=== PATIENT | male | born 1990 | race African-American/Black ===

== ENCOUNTER 2020-10-08 16:15 | Emergency (ER) | payer OTHER, SELFPAY ==
--- NOTE | 2020-10-08 | ECG_ITS ---
Test Reason : CHEST PAIN Blood Pressure : / mmHG Vent. Rate : 078 BPM Atrial Rate : 078 BPM P-R Int : 174 ms QRS Dur : 104 ms QT Int : 336 ms P-R-T Axes : 056 066 027 degrees QTc Int : 383 ms Normal sinus rhythm with sinus arrhythmia Normal ECG No previous ECGs available Referred By: Generic ED Physician Electronically Signed By:NICOLASA VASQUEZ
--- NOTE | ~2020-10-08 | XR_ITS ---
EXAMINATION: XR CHEST CLINICAL INFORMATION: Chest pain COMPARISON: None TECHNIQUE: Frontal view of the chest was obtained. FINDINGS: No significant abnormality is noted involving the heart, lungs, mediastinum, bony thorax or soft tissues. Some minimal bibasilar atelectasis is present. XR/XR chest 1V IMPRESSION: No acute intrathoracic disease.
[2020-10-08 17:06] VITALS: BP 141/79; PULSE 82; RESP 18; TEMP 36.9; O2SAT 97; BMI 32.1
[2020-10-08 19:36] VITALS: BP 139/91; PULSE 69; RESP 16; O2SAT 99
--- NOTE | 2020-10-08 19:59 | PC.NURSE ---
Pt found sitting upright in bed, CAOx4. Pt reporting multiple complaints, states he requires a RX for ABX due to an ongoing infection to a tooth on his upper right side, states the tooth fell out but per his MD, to come to the ED for ABX. Pt also reporting chronic bleed in his stools x 1 year with associated upper abdominal pain. Pt showing this RN pictures of his BM today. Loose BM noted with bright red blood and clots. Pt denies constipation/hemorrhoids. Pt states he has mentioned it to his doctor but no further treatment was ordered. Pt also reporting a history of HTN, states recent med changes. Pt c/o intermittent CP x 6 months. EKG completed in Triage. IV established, labs obtained. CXR at bedside. Pt awaiting primary MD edwardo. [place]. Continue to monitor.
[2020-10-08 20:14] LABS: MANUAL DIFF FLAG NO
[2020-10-08 20:16] LABS: Basophils Absolute Auto 0.1 X10*3/uL (0.0-0.2); Basophils Percent Auto 0.7 % (0-2); Eosinophils Absolute Auto 0.4 X10*3/uL (0.0-0.4); Eosinophils Percent Auto 4.2 % (0-4); Hematocrit 43.4 % (42-52); Hemoglobin 14.8 g/dl (14.0-18.0); Imm Gran Abs Auto 0.03 X10*3/uL (0.00-0.03); Imm Gran Pct Auto 0.3 % (0.0-0.4); Lymphocytes Absolute Auto 2.9 X10*3/uL (1.2-4.9); Lymphocytes Percent Auto 31.6 % (20-40); Mean Corpuscular HGB Conc 34.1 g/dl (31.0-36.0); Mean Corpuscular Hemoglobin 28.4 pg (27.0-33.0); Mean Corpuscular Volume 83.3 fL (80-98); Mean Platelet Volume 9.9 fL (9.4-12.4); Monocytes Absolute Auto 0.9 X10*3/uL (0.1-1.2); Monocytes Percent Auto 10.2 % (2-11); Neutrophils Absolute Auto 4.8 X10*3/uL (2.0-8.3); Platelet Count 189 X10*3/uL (160-400); Red Blood Count 5.21 X10*6/uL (4.60-5.80); Red Cell Distribution Width 14.3 % (11.0-16.0)
[2020-10-08 20:38] LABS: Anion Gap 11 (12-20); Blood Urea Nitrogen 12 mg/dL (9-16); Calcium 9.8 mg/dL (8.4-10.2); Carbon Dioxide 30 mmol/L (22-29); Chloride 105 mmol/L (96-108); Creatinine Clr Calc Pharmacy 95.9; Estimated Glomerular Filt Rate 55; Glucose Random 75 mg/dL (60-115); Potassium 3.9 mmol/L (3.3-5.1); Sodium 142 mmol/L (135-145)
[2020-10-08 20:46] LABS: Troponin-I High Sensitivity 4.2 ng/L (<3.5-35.0)
[2020-10-08 21:32] VITALS: BP 122/75; PULSE 67; RESP 15; TEMP 36.9; O2SAT 98
--- NOTE | 2020-10-08 22:04 | PC.NURSE ---
Pt had MD Bowden assigned to him accidentally in Triage so he was not showing up on MDs to be seen screen. Pt continues awaiting primary MD brooke due to this confusion. MD Hodges signing up for pt.
--- NOTE | 2020-10-08 22:17 | ED.GENADULT ---
HPI - General Adult General Chief complaint: Abdominal Pain Stated complaint: dental infection Time Seen by Provider: 10/08/20 22:16 Source: patient Mode of arrival: ambulatory History of Present Illness HPI narrative: 30-year-old male who presents with complaints right upper tooth loss with subsequent pain and drainage, and states that his dentist told him to come to the emergency room to get antibiotics and then provided him with a follow-up appointment for definitive treatment. Patient is also concerned about over a year of bleeding that is associated with defecation, not painful, and has not soiled his underwear. He does report that he has constipation and strains frequently with his bowel movements. He otherwise denies any abdominal pain but reports significant anxiety regarding this ongoing issue. He has discussed with his primary care doctor who has attributed to stress. Related Data Previous Rx's Medication Instructions Recorded amoxicillin-pot clavulanate 1 tab PO Q12H 7 Days #14 tab 10/09/20 [Augmentin] Allergies Allergy/AdvReac Type Severity Reaction Status Date / Time No Known Allergies Allergy Unverified 01/08/20 18:04 Review of Systems Review of Systems: Pertinent positives and negatives as stated in HPI 10 point review of systems otherwise negative. [facility] Past Medical History Source: nursing notes reviewed Social History Social History Advance Directives: No Advance Directives Information Provided: No Physical Exam Vital Signs: Vital Signs: Last Vital Signs Temp 98.4 F 10/08/20 21:32 Pulse 78 10/08/20 23:12 Resp 16 10/08/20 23:12 BP 136/87 10/08/20 23:12 Pulse Ox 98 10/08/20 21:32 Body Mass Index 32.1 VITAL SIGNS: Reviewed. GENERAL: Smells like marijuana, Well developed, well nourished, in no acute distress. HEAD: Normocephalic/atraumatic, EYES: PERRLA, EOMI OROPHARYNX: no oral lesions noted, posterior pharynx clear, missing tooth noted at right upper without evidence gingival edema and multiple other dental caries LUNGS: Normal breath sounds. No adventitious sounds or accessory muscle use. SpO2<98> CARDIOVASCULAR: Regular rate and rhythm without noted murmurs ABDOMEN: Obese, Soft, non-tender, non-distended with bowel sounds. MUSCULOSKELETAL: No tenderness, deformities, or effusions noted on gross inspection. EXTREMITIES: No cyanosis, clubbing or edema. SKIN: Inspection of the skin reveals no rashes NEUROLOGIC: Alert and oriented x 4. Strength and sensation to light touch were grossly intact x 4. Course Course Course Narrative: This is a 30-year-old male with history and clinical presentation consistent with likely hemorrhoid related rectal bleeding, and will be provided with initial antibiotics here in the emergency room and then discharged with remaining prescription. On review of Hematology results there is no evidence of acute anemia. Review of all investigations negative for acute findings to suggest anemia or infection and serial troponins noted to be lateral as they are detectable but not elevated without acute changes on EKG. Patient was informed of all results. Medical Decision Making Lab Data Result diagrams: 10/08/20 19:56 10/08/20 19:56 Labs: Lab Results 10/08/20 10/08/20 10/08/20 Range/Units 19:56 19:56 19:56 WBC 9.0 (4.8-10.8) X10*3/uL RBC 5.21 (4.60-5.80) X10*6/uL Hgb 14.8 (14.0-18.0) g/dl Hct 43.4 (42-52) % MCV 83.3 (80-98) fL MCH 28.4 (27.0-33.0) pg MCHC 34.1 (31.0-36.0) g/dl RDW 14.3 (11.0-16.0) % Plt Count 189 (160-400) X10*3/uL MPV 9.9 (9.4-12.4) fL Immature Gran % (Auto) 0.3 (0.0-0.4) % Neut % (Auto) 53.0 (45-73) % Lymph % (Auto) 31.6 (20-40) % [place] % (Auto) 10.2 (2-11) % Eos % (Auto) 4.2 H (0-4) % Baso % (Auto) 0.7 (0-2) % Lymph # (Auto) 2.9 (1.2-4.9) X10*3/uL [place] # (Auto) 0.9 (0.1-1.2) X10*3/uL Eos # (Auto) 0.4 (0.0-0.4) X10*3/uL Baso # (Auto) 0.1 (0.0-0.2) X10*3/uL Abs Immat Gran (auto) 0.03 (0.00-0.03) X10*3/uL Absolute Neuts (auto) 4.8 (2.0-8.3) X10*3/uL Absolute Nucleated RBC 0.000 (0.0-0.012) X10*3/uL Nucleated RBC % (auto) 0.0 (0.0-0.2) /100WBC Sodium 142 (135-145) mmol/L Potassium 3.9 (3.3-5.1) mmol/L Chloride 105 (96-108) mmol/L Carbon Dioxide 30 H (22-29) mmol/L Anion Gap 11 L (12-20) BUN 12 (9-16) mg/dL Creatinine 1.48 H (0.5-1.4) mg/dL Estim Creat Clear Calc 95.9 Estimated GFR 55 Random Glucose 75 (60-115) mg/dL Calcium 9.8 (8.4-10.2) mg/dL Troponin I High Sens 4.2 (<3.5-35.0) ng/L Urine Color Urine Appearance Urine pH (5.0-8.0) Ur Specific [employer] (1.005-1.025) Urine Protein (NEG-TRACE) MG/DL Urine Glucose (UA) (NEG) MG/DL Urine Ketones (NEG) MG/DL Urine Blood (NEG) Urine Nitrite (NEG) Ur Leukocyte Esterase (NEG) 10/08/20 10/08/20 Range/Units 22:19 23:37 WBC (4.8-10.8) X10*3/uL RBC (4.60-5.80) X10*6/uL Hgb (14.0-18.0) g/dl Hct (42-52) % MCV (80-98) fL MCH (27.0-33.0) pg MCHC (31.0-36.0) g/dl RDW (11.0-16.0) % Plt Count (160-400) X10*3/uL MPV (9.4-12.4) fL Immature Gran % (Auto) (0.0-0.4) % Neut % (Auto) (45-73) % Lymph % (Auto) (20-40) % [place] % (Auto) (2-11) % Eos % (Auto) (0-4) % Baso % (Auto) (0-2) % Lymph # (Auto) (1.2-4.9) X10*3/uL [place] # (Auto) (0.1-1.2) X10*3/uL Eos # (Auto) (0.0-0.4) X10*3/uL Baso # (Auto) (0.0-0.2) X10*3/uL Abs Immat Gran (auto) (0.00-0.03) X10*3/uL Absolute Neuts (auto) (2.0-8.3) X10*3/uL Absolute Nucleated RBC (0.0-0.012) X10*3/uL Nucleated RBC % (auto) (0.0-0.2) /100WBC Sodium (135-145) mmol/L Potassium (3.3-5.1) mmol/L Chloride (96-108) mmol/L Carbon Dioxide (22-29) mmol/L Anion Gap (12-20) BUN (9-16) mg/dL Creatinine (0.5-1.4) mg/dL Estim Creat Clear Calc Estimated GFR Random Glucose (60-115) mg/dL Calcium (8.4-10.2) mg/dL Troponin I High Sens 4.1 (<3.5-35.0) ng/L Urine Color YELLOW Urine Appearance CLEAR Urine pH 6.0 (5.0-8.0) Ur Specific [employer] 1.020 (1.005-1.025) Urine Protein NEG (NEG-TRACE) MG/DL Urine Glucose (UA) NEG (NEG) MG/DL Urine Ketones NEG (NEG) MG/DL Urine Blood NEG (NEG) Urine Nitrite NEG (NEG) Ur Leukocyte Esterase NEG (NEG) Discharge Plan Discharge Clinical Impression: Toothache, Constipation, Infected tooth, Hemorrhoid Patient Disposition: Home, Self-Care Instructions: Constipation (ED), Hemorrhoids (ED), High Fiber Diet (ED), Toothache (ED) Additional Instructions: 1. Complete entire course of antibiotics that you have been prescribed for your dental pain. 2. You have been provided with a referral to Gastroenterology for your hemorrhoids, please see the referral listed below. Return to the ER for worsening symptoms. Prescriptions: New amoxicillin-pot clavulanate [Augmentin] 875-125 mg tablet 1 tab PO Q12H 7 Days Qty: 14 RF: 0 Referrals: Leighton Ruiz MD [Primary Care Provider] - 2 days Fernanda Mccoy MD [Physician] - 2 days (Please evaluate and treat as indicated for hemorrhoids.) Interventions: LWBS Worksheet Last Done: 10/08/20 19:11
--- NOTE | 2020-10-08 22:21 | PC.NURSE ---
UO obtained and sent.
[2020-10-08 22:25] LABS: Glucose Urine UA NEG (NEG); Leukocyte Esterase Urine NEG (NEG); Nitrite Urine NEG (NEG); Urine Blood NEG (NEG); Urine Ketones NEG (NEG); Urine Protein NEG (NEG-TRACE)
[2020-10-08 22:27] LABS: Appearance Urine CLEAR; Color Urine YELLOW
--- NOTE | 2020-10-08 22:28 | PC.NURSE ---
at bedside for primary eval.
[2020-10-08] MEDS: Amoxicillin/Potassium Clav 875 MG TABLET PO (23:10)
[2020-10-08 23:12] VITALS: BP 136/87; PULSE 78; RESP 16
--- NOTE | 2020-10-08 23:12 | PC.NURSE ---
Medicated per JUN. VSS. Pt aware of plan for CT. Continue to monitor.
--- NOTE | 2020-10-09 00:10 | PC.NURSE ---
ophthalmic technician apprentice at bedside to obtain repeat Troponin.
[2020-10-09 00:13] LABS: Troponin-I High Sensitivity 4.1 ng/L (<3.5-35.0)
== END 2020-10-09 00:46 | disposition home or self-care (01) ==
PROVIDERS: Emergency Provider Student in an Organized Health Care Education/Training Program; PCP Internal Medicine
DX: K04.7 Periapical abscess without sinus (principal); K59.00 Constipation, unspecified; K64.9 Unspecified hemorrhoids
CPT/HCPCS: 36415; 71045; 80048; 81003; 84484; 85025; 93005; 99284

== ENCOUNTER 2021-12-10 13:52 | Emergency (ER) | payer OTHER, SELFPAY ==
--- NOTE | ~2021-12-10 | XR_ITS ---
EXAMINATION: XR CHEST CLINICAL INFORMATION: Right-sided chest pain COMPARISON: 10/08/2020 TECHNIQUE: Frontal view of the chest was obtained. FINDINGS: No significant abnormality is noted involving the heart, lungs, mediastinum, bony thorax or soft tissues. XR/XR chest 1V IMPRESSION: Unremarkable examination.
[2021-12-10 13:57] VITALS: BP 148/82; PULSE 72; RESP 16; TEMP 36.6; O2SAT 100; BMI 33.3
--- NOTE | 2021-12-10 13:57 | ECG_ITS ---
Test Reason : chest pain Blood Pressure : / mmHG Vent. Rate : 067 BPM Atrial Rate : 067 BPM P-R Int : 168 ms QRS Dur : 102 ms QT Int : 360 ms P-R-T Axes : 066 065 030 degrees QTc Int : 380 ms Normal sinus rhythm Normal ECG When compared with ECG of 08-OCT-2020 17:22, No significant change was found Referred By: Generic ED Physician Electronically Signed By:MARTIN GUILLERMO
[2021-12-10 14:12] LABS: MANUAL DIFF FLAG NO
[2021-12-10 14:16] LABS: Basophils Absolute Auto 0.1 X10*3/uL (0.0-0.2); Basophils Percent Auto 0.7 % (0-2); Eosinophils Absolute Auto 0.5 X10*3/uL (0.0-0.4); Eosinophils Percent Auto 6.5 % (0-4); Hematocrit 47.3 % (42.0-52.0); Hemoglobin 16.1 g/dl (14.0-18.0); Imm Gran Abs Auto 0.01 X10*3/uL (0.00-0.03); Imm Gran Pct Auto 0.1 % (0.0-0.4); Lymphocytes Percent Auto 35.7 % (20-40); Mean Corpuscular Hemoglobin 27.6 pg (27.0-33.0); Mean Corpuscular Volume 81.1 fL (80.0-98.0); Mean Platelet Volume 9.8 fL (9.4-12.4); Monocytes Absolute Auto 0.7 X10*3/uL (0.1-1.2); Monocytes Percent Auto 8.4 % (2-11); Neutrophils Percent Auto 48.6 % (45-73); Platelet Count 217 X10*3/uL (160-400); Red Blood Count 5.83 X10*6/uL (4.60-5.80); White Blood Count 8.3 X10*3/uL (4.8-10.8)
[2021-12-10 14:28] LABS: COVID-19 Test Negative (Negative)
[2021-12-10 14:32] LABS: Alanine Aminotransferase 18 U/L (0-40); Albumin Level 4.3 g/dL (3.5-5.0); Alkaline Phosphatase 74 U/L (39-117); Anion Gap 14 (12-20); Aspartate Amino Transferase 26 U/L (5-37); Bilirubin Total 0.5 mg/dL (0.0-1.0); Blood Urea Nitrogen 12 mg/dL (9-16); Calcium 9.8 mg/dL (8.4-10.2); Carbon Dioxide 27 mmol/L (22-29); Chloride 104 mmol/L (96-108); Creatinine Clr Calc Pharmacy 98.2; Estimated Glomerular Filt Rate 56; Glucose Random 92 mg/dL (60-115); Potassium 3.7 mmol/L (3.3-5.1); Sodium 141 mmol/L (135-145); Total Protein 7.4 g/dL (6.5-8.0)
[2021-12-10 14:38] LABS: Troponin-I High Sensitivity 3.6 ng/L (<3.5-35.0)
[2021-12-10 19:54] VITALS: BP 140/89; PULSE 62; RESP 18; TEMP 36.9; O2SAT 98
--- NOTE | 2021-12-10 21:35 | ED_ITS ---
HPI - Chest Pain General Chief Complaint: Chest Pain Stated Complaint: chest pain r shoulder pain Time Seen by Provider: 12/10/21 21:35 Source: patient Mode of arrival: ambulatory Limitations: no limitations History of Present Illness HPI narrative: Patient complaining of right-sided chest pain for last 2 days had COVID vaccine in the left arm 5 days ago. No shortness of breath no palpitation chest pain get worse on movement and palpation Related Data Previous Rx's Medication Instructions Recorded amoxicillin 875 mg-potassium 1 tab PO Q12H 7 days #14 tabs 10/09/20 clavulanate 125 mg tablet (Augmentin) Allergies Allergy/AdvReac Type Severity Reaction Status Date / Time No Known Allergies Allergy Unverified 01/08/20 18:04 Review of Systems Review of Systems: Yes all other systems are reviewed and are negative [facility] Social History Social History Advance Directives: No Advance Directives Information Provided: No Physical Exam Vital Signs: Vital Signs: Last Vital Signs Temp 98.4 F 12/10/21 19:54 Pulse 68 12/10/21 22:03 Resp 14 12/10/21 22:03 BP 150/91 H 12/10/21 22:03 Pulse Ox 99 12/10/21 22:03 O2 Del Method 12/10/21 22:03 BMI result Body Mass Index 33.3 Appearance: Alert. Oriented X3. No acute distress. Eyes: PERRLA, No Nystagmus ENT: Pharynx normal. Oral Mucosa moist Neck: Normal inspection. Neck supple. CVS: Normal heart rate and rhythm. Pulses normal. Respiratory: No respiratory distress. Right chest wall tenderness Equal air entry bilateral, no wheezing/rales/rhonchi Abdomen: Soft and nontender. Bowel sounds are present, no mass palpable, no CVA tenderness Skin: Skin warm and dry. Normal skin color. Normal skin turgor. Extremities: No lower extremity edema. No calf tenderness Neuro: Oriented X 3. No motor deficit. MDM - Chest Pain MDM Narrative Medical decision making narrative: Patient with atypical musculoskeletal pain cardiogram negative troponin also negative discharge patient home Lab Data Attestation: I reviewed the patient's lab results. Result diagrams: 12/10/21 14:07 12/10/21 14:07 Labs: Lab Results 12/10/21 12/10/21 12/10/21 Range/Units 14:05 14:07 14:07 WBC 8.3 (4.8-10.8) X10*3/uL RBC 5.83 H (4.60-5.80) X10*6/uL Hgb 16.1 (14.0-18.0) g/dl Hct 47.3 (42.0-52.0) % MCV 81.1 (80.0-98.0) fL MCH 27.6 (27.0-33.0) pg MCHC 34.0 (31.0-36.0) g/dl RDW 14.0 (11.0-16.0) % Plt Count 217 (160-400) X10*3/uL MPV 9.8 (9.4-12.4) fL Immature Gran % (Auto) 0.1 (0.0-0.4) % Neut % (Auto) 48.6 (45-73) % Lymph % (Auto) 35.7 (20-40) % [place] % (Auto) 8.4 (2-11) % Eos % (Auto) 6.5 H (0-4) % Baso % (Auto) 0.7 (0-2) % Lymph # (Auto) 3.0 (1.2-4.9) X10*3/uL [place] # (Auto) 0.7 (0.1-1.2) X10*3/uL Eos # (Auto) 0.5 H (0.0-0.4) X10*3/uL Baso # (Auto) 0.1 (0.0-0.2) X10*3/uL Abs Immat Gran (auto) 0.01 (0.00-0.03) X10*3/uL Absolute Neuts (auto) 4.0 (2.0-8.3) x10*3/uL Absolute Nucleated RBC 0.000 (0.0-0.012) X10*3/uL Nucleated RBC % (auto) 0.0 (0.0-0.2) /100WBC Sodium 141 (135-145) mmol/L Potassium 3.7 (3.3-5.1) mmol/L Chloride 104 (96-108) mmol/L Carbon Dioxide 27 (22-29) mmol/L Anion Gap 14 (12-20) BUN 12 (9-16) mg/dL Creatinine 1.46 H (0.5-1.4) mg/dL Estim Creat Clear Calc 98.2 Estimated GFR 56 Random Glucose 92 (60-115) mg/dL Calcium 9.8 (8.4-10.2) mg/dL Total Bilirubin 0.5 (0.0-1.0) mg/dL AST 26 (5-37) U/L ALT 18 (0-40) U/L Alkaline Phosphatase 74 (39-117) U/L Troponin I High Sens (<3.5-35.0) ng/L Total Protein 7.4 (6.5-8.0) g/dL Albumin 4.3 (3.5-5.0) g/dL COVID-19 (RACHEL) Negative (Negative) COVID-19 Clin Com See Note 12/10/21 Range/Units 14:07 WBC (4.8-10.8) X10*3/uL RBC (4.60-5.80) X10*6/uL Hgb (14.0-18.0) g/dl Hct (42.0-52.0) % MCV (80.0-98.0) fL MCH (27.0-33.0) pg MCHC (31.0-36.0) g/dl RDW (11.0-16.0) % Plt Count (160-400) X10*3/uL MPV (9.4-12.4) fL Immature Gran % (Auto) (0.0-0.4) % Neut % (Auto) (45-73) % Lymph % (Auto) (20-40) % [place] % (Auto) (2-11) % Eos % (Auto) (0-4) % Baso % (Auto) (0-2) % Lymph # (Auto) (1.2-4.9) X10*3/uL [place] # (Auto) (0.1-1.2) X10*3/uL Eos # (Auto) (0.0-0.4) X10*3/uL Baso # (Auto) (0.0-0.2) X10*3/uL Abs Immat Gran (auto) (0.00-0.03) X10*3/uL Absolute Neuts (auto) (2.0-8.3) x10*3/uL Absolute Nucleated RBC (0.0-0.012) X10*3/uL Nucleated RBC % (auto) (0.0-0.2) /100WBC Sodium (135-145) mmol/L Potassium (3.3-5.1) mmol/L Chloride (96-108) mmol/L Carbon Dioxide (22-29) mmol/L Anion Gap (12-20) BUN (9-16) mg/dL Creatinine (0.5-1.4) mg/dL Estim Creat Clear Calc Estimated GFR Random Glucose (60-115) mg/dL Calcium (8.4-10.2) mg/dL Total Bilirubin (0.0-1.0) mg/dL AST (5-37) U/L ALT (0-40) U/L Alkaline Phosphatase (39-117) U/L Troponin I High Sens 3.6 (<3.5-35.0) ng/L Total Protein (6.5-8.0) g/dL Albumin (3.5-5.0) g/dL COVID-19 (RACHEL) (Negative) COVID-19 Clin Com ECG Data ECG #1: Attestation: I personally reviewed and interpreted this ECG as follows: Interpretation: NSR heart rate 67 beats per minute normal interval , normal axis no acute ischemia Scores Heart Score History: -0- slightly suspicious ECG: -0- normal Age: -0- < or = 45 Risk factory: -0- no risk factors known Troponin: -0- < or = normal limit Score: 0 Risk: 1.7% Discharge Plan Discharge Clinical Impression: Atypical chest pain Patient Disposition: Home, Self-Care Instructions: Noncardiac Chest Pain (ED) Additional Instructions: your chest pain is not from the heart likely musculoskeletal take Tylenol/Motrin for pain Prescriptions: No Action amoxicillin-pot clavulanate [Augmentin] 875-125 mg tablet 1 tab PO Q12H 7 Days Qty: 14 0RF
[2021-12-10 22:03] VITALS: BP 150/91; PULSE 68; RESP 14; O2SAT 99
== END 2021-12-10 22:04 | disposition home or self-care (01) ==
PROVIDERS: Emergency Provider Internal Medicine; PCP Internal Medicine
DX: R07.89 Other chest pain (principal); Z20.822 Contact with and (suspected) exposure to COVID-19
CPT/HCPCS: 36415; 71045; 80053; 84484; 85025; 87635; 93005; 99283